=== PATIENT | female | born 1935 | race Caucasian/White ===

== ENCOUNTER → 2020-08-24 | Outpatient (CLI) | payer MEDICARE ==
[~2020-08-24] MED LIST: ALPRAZOLAM0.5 MG PO; AMBIEN10 MG PO; CORDARONE 200M200 MG PO; COZAAR 50MG TAB50 MG PO; ELIQUIS5 MG PO; HYDRALAZINE HCL50 MG PO; ISOSORBIDE MONO30 MG PO; METHOCARBAMOL500 MG PO; NORCO 7.5-3251 EACH PO; PRAVACHOL20 MG PO; REGLAN5 MG PO; SYNTHROID112 MCG PO
== END ==
LOC: HEART 5 14:03
DX: Z79.899 Other long term (current) drug therapy (principal); R06.02 Shortness of breath; R06.2 Wheezing
CPT/HCPCS: 94060; 94729